=== PATIENT | female | born 1960 | race Caucasian/White ===

== ENCOUNTER → 2017-05-19 | Outpatient (CLI) | payer MEDICARE, MEDICAID ==
[~2017-05-19] MED LIST: ASPI1TAB PO; CALC600T60 PO; DRIS50002 PO; LORA10TA2 PO; MOME50SP; MULTCAP PO; NEXI40CA PO; OXYB10TA PO; PERC5TAB12 PO; TIMO5OPD OD; ZEST1TAB3 PO; [UNRECOGNIZED DRUG - OTHER] OU; astelin
[2017-05-19 09:25] LABS: ALBUMIN 3.4 GM/DL (3.2-5.2); ALBUMIN/GLOBULIN RATIO 0.97 (1.00-1.93); ALKALINE PHOSPHATASE 212 U/L (45-117); ALT/SGPT 50 U/L (12-78); ANION GAP 7 MEQ/L (8-16); AST/SGOT 22 U/L (15-37); BILIRUBIN,TOTAL 0.8 MG/DL (0.2-1.0); BLOOD UREA NITROGEN 17 MG/DL (7-18); CARBON DIOXIDE LEVEL 33 MEQ/L (21-32); CHLORIDE LEVEL 100 MEQ/L (98-107); CHOLESTEROL LEVEL 200 MG/DL (<200); CREATININE FOR GFR 0.67 MG/DL (0.55-1.02); GLOMERULAR FILTRATION RATE > 60.0 (>51); GLUCOSE, FASTING 127 MG/DL (70-105); POTASSIUM SERUM 4.3 MEQ/L (3.5-5.1); SODIUM LEVEL 140 MEQ/L (136-145); TOTAL PROTEIN 6.9 GM/DL (6.4-8.2); TRIGLYCERIDES LEVEL 220 MG/DL (<150)
== END ==
LOC: M LAB 08:00
PROVIDERS: ATTEND Family Medicine
DX: Z13.1 Encounter for screening for diabetes mellitus (principal); E78.00 Pure hypercholesterolemia, unspecified

== ENCOUNTER → 2017-06-18 | Outpatient (CLI) | payer MEDICARE ==
--- NOTE | 2017-06-18 10:08 | REP ---
Bilateral screening digital mammogram: There are no palpable abnormalities or other breast complaints. The patient states she had a clinical breast exam in May 2017. Comparison is 08/20/2010. Breast parenchyma is predominately adipose, with a few persisting fibroglandular elements, unchanged. There has been no interval development of masses, areas of structural distortion or clusters of microcalcifications typical of malignancy. Impression: There is no evidence of malignancy. BIRADS category 1 negative mammogram. The patient should have a repeat mammogram in 1 year. This mammogram was interpreted with the aid of an FDA-approved computer-aided detection system. A. Negative x-ray reports should not delay biopsy if a dominant or clinically suspicious mass is present. B. Not all breast cancers are identified by x-ray. C. Adenosis and dense breasts may obscure an underlying neoplasm. The patient letter being requested is M1.
== END ==
LOC: M WHC 08:09
PROVIDERS: ATTEND Family Medicine
DX: Z12.31 Encounter for screening mammogram for malignant neoplasm of breast (principal)

== ENCOUNTER → 2017-11-13 | Outpatient (REF) | payer MEDICARE, MEDICAID ==
[2017-11-13 16:43] LABS: ESTIMATED AVERAGE GLUCOSE 171 MG/DL (60-110); HEMOGLOBIN A1c 7.6 %
== END ==
LOC: M SFHCPLAZ 13:59
DX: R73.01 Impaired fasting glucose (principal)
CPT/HCPCS: 83036

== ENCOUNTER → 2018-01-12 | Outpatient (CLI) | payer MEDICARE, MEDICAID | LOC: M RAD 12:12 | DX: M85.08 Fibrous dysplasia (monostotic), other site (principal); M17.11 Unilateral primary osteoarthritis, right knee; M25.561 Pain in right knee; M25.461 Effusion, right knee ==

== ENCOUNTER → 2018-01-12 | Outpatient (REF) | payer MEDICARE, MEDICAID ==
[2018-01-12 13:37] LABS: TOTAL 25(OH) VITAMIN D 16.5 NG/ML (30.0-100.0)
[2018-01-12 13:45] LABS: ALBUMIN 3.4 GM/DL (3.2-5.2); ALBUMIN/GLOBULIN RATIO 1.03 (1.00-1.93); ALKALINE PHOSPHATASE 201 U/L (45-117); ALT/SGPT 41 U/L (12-78); ANION GAP 8 MEQ/L (8-16); AST/SGOT 26 U/L (7-37); BILIRUBIN,TOTAL 0.7 MG/DL (0.2-1.0); BLOOD UREA NITROGEN 10 MG/DL (7-18); CALCIUM LEVEL 8.6 MG/DL (8.8-10.2); CARBON DIOXIDE LEVEL 29 MEQ/L (21-32); CHLORIDE LEVEL 106 MEQ/L (98-107); GLOMERULAR FILTRATION RATE > 60.0 (>45); GLUCOSE, FASTING 94 MG/DL (70-100); SODIUM LEVEL 143 MEQ/L (136-145); TOTAL PROTEIN 6.7 GM/DL (6.4-8.2)
== END ==
LOC: M SFHCPLAZ 10:30
DX: M79.661 Pain in right lower leg (principal); I10 Essential (primary) hypertension (principal); E55.9 Vitamin D deficiency, unspecified; K76.0 Fatty (change of) liver, not elsewhere classified; E03.9 Hypothyroidism, unspecified; M85.08 Fibrous dysplasia (monostotic), other site; M17.11 Unilateral primary osteoarthritis, right knee; M25.461 Effusion, right knee; M25.861 Other specified joint disorders, right knee; Z79.899 Other long term (current) drug therapy
CPT/HCPCS: 73564

== ENCOUNTER → 2018-03-02 | Outpatient (REF) | payer MEDICARE, MEDICAID ==
[2018-03-02 11:57] LABS: HEMATOCRIT 46.2 % (36.0-47.0); MEAN CORPUSCULAR HEMOGLOBIN 29.6 pg (27.0-33.0); MEAN CORPUSCULAR HGB CONC 32.5 g/dl (32.0-36.5); MEAN CORPUSCULAR VOLUME 91.1 fl (80.0-96.0); PLATELET COUNT, AUTOMATED 300 10^3/uL (150-450); RED BLOOD COUNT 5.07 10^6/uL (4.00-5.40); RED CELL DISTRIBUTION WIDTH 13.1 % (11.5-14.5); WHITE BLOOD COUNT 12.8 10^3/uL (4.0-10.0)
[2018-03-02 12:26] LABS: ANION GAP 7 MEQ/L (8-16); BLOOD UREA NITROGEN 23 MG/DL (7-18); CALCIUM LEVEL 8.4 MG/DL (8.8-10.2); CARBON DIOXIDE LEVEL 34 MEQ/L (21-32); CHLORIDE LEVEL 102 MEQ/L (98-107); CREATININE FOR GFR 0.73 MG/DL (0.55-1.30); GLOMERULAR FILTRATION RATE > 60.0 (>45); GLUCOSE, FASTING 121 MG/DL (70-100); POTASSIUM SERUM 4.6 MEQ/L (3.5-5.1); SODIUM LEVEL 143 MEQ/L (136-145)
[2018-03-02 14:32] LABS: ESTIMATED AVERAGE GLUCOSE 166 MG/DL (60-110); HEMOGLOBIN A1c 7.4 %
== END ==
LOC: M SFHCPLAZ 08:38
DX: R73.01 Impaired fasting glucose (principal)
CPT/HCPCS: 83036

== ENCOUNTER → 2018-03-05 | Outpatient (REF) | payer MEDICARE, MEDICAID ==
[2018-03-05 14:24] LABS: CREATININE, URINE 72.5 MG/DL; MALB URINE SIEMENS < 5.0 MG/L; MAU/CREAT RATIO 6.8 MCG/MG (0.0-30.0)
== END ==
LOC: M SFHCPLAZ 12:54
DX: E11.9 Type 2 diabetes mellitus without complications (principal)
CPT/HCPCS: 82043

== ENCOUNTER → 2018-04-05 | Outpatient (REF) | payer MEDICARE, MEDICAID | LOC: M SFHCPLAZ 11:27 | DX: I10 Essential (primary) hypertension (principal); Z53.8 Procedure and treatment not carried out for other reasons ==

== ENCOUNTER → 2018-12-06 | Outpatient (CLI) | payer MEDICARE, MEDICAID ==
[~2018-12-06] MED LIST changes: -ASPI1TAB PO; +ASPI81TA26 PO; -DRIS50002 PO; +DRIS50003 PO; +LORA-243 PO; -LORA10TA2 PO
[2018-12-06 14:49] LABS: MONO SCRN NEGATIVE (NEGATIVE)
== END ==
LOC: M LAB 13:09
PROVIDERS: ATTEND Physician Assistant Medical
DX: R53.83 Other fatigue (principal)

== ENCOUNTER → 2018-12-28 | Outpatient (CLI) | payer MEDICARE, MEDICAID ==
[2018-12-28 13:23] LABS: HEMATOCRIT 41.8 % (36.0-47.0); HEMOGLOBIN 13.4 g/dl (12.0-15.5); MEAN CORPUSCULAR HGB CONC 32.1 g/dl (32.0-36.5); MEAN CORPUSCULAR VOLUME 93.5 fl (80.0-96.0); PLATELET COUNT, AUTOMATED 326 10^3/uL (150-450); RED BLOOD COUNT 4.47 10^6/uL (4.00-5.40); WHITE BLOOD COUNT 9.7 10^3/uL (4.0-10.0)
[2018-12-28 13:59] LABS: ALBUMIN 3.3 GM/DL (3.2-5.2); ALT/SGPT 35 U/L (12-78); BILIRUBIN,TOTAL 0.4 MG/DL (0.2-1.0); BLOOD UREA NITROGEN 15 MG/DL (7-18); CARBON DIOXIDE LEVEL 32 MEQ/L (21-32); CHLORIDE LEVEL 101 MEQ/L (98-107); CHOLESTEROL LEVEL 171 MG/DL (<200); CHOLESTEROL RISK RATIO 4.275 (<5); CREATININE FOR GFR 0.67 MG/DL (0.55-1.30); GLOMERULAR FILTRATION RATE > 60.0 (>45); GLUCOSE, FASTING 114 MG/DL (70-100); HDL CHOLESTEROL 40 MG/DL (>40); LDL CHOLESTEROL 94 MG/DL (<100); NON-HDL-C 131 MG/DL; SODIUM LEVEL 140 MEQ/L (136-145); TOTAL PROTEIN 6.2 GM/DL (6.4-8.2); TRIGLYCERIDES LEVEL 183 MG/DL (<150)
[2018-12-28 14:13] LABS: MALB URINE SIEMENS 10.7 MG/L; MAU/CREAT RATIO 8.2 MCG/MG (0.0-30.0)
[2018-12-28 19:10] LABS: HEMOGLOBIN A1c 6.6 %
== END ==
LOC: M WUC 09:24
PROVIDERS: ATTEND Family Medicine
DX: E03.9 Hypothyroidism, unspecified (principal); E11.9 Type 2 diabetes mellitus without complications; I10 Essential (primary) hypertension

== ENCOUNTER 2019-03-05 21:46 | Emergency (ER) | payer MEDICARE, MEDICAID ==
[~2019-03-05] VITALS: Ht 149.9 cm; Wt 77.2 kg
[~2019-03-05 21:46] MED LIST changes: -OXYB10TA PO; +OXYB10TA2 PO
[2019-03-05] MEDS ORDERED: KETOROLAC 30 MG/ML VIAL (J1885) IV ONE (22:30)
[2019-03-05] MEDS ORDERED: NS 1,000 ML IV ONE (22:30)
[2019-03-05 22:48] LABS: BASO % 0.1 % (0.0-1.0); EOS # 0.1 10^3/uL (0.0-0.50); EOS % 0.5 % (0.0-3.0); HEMATOCRIT 40.8 % (36.0-47.0); HEMOGLOBIN 13.4 g/dl (12.0-15.5); LYMPH # 1.9 10^3/uL (1.5-4.5); LYMPH % 18.1 % (24.0-44.0); MEAN CORPUSCULAR HEMOGLOBIN 29.7 pg (27.0-33.0); MEAN CORPUSCULAR HGB CONC 32.8 g/dl (32.0-36.5); MEAN CORPUSCULAR VOLUME 90.5 fl (80.0-96.0); MONO # 1.1 10^3/uL (0.0-0.8); MONO % 10.5 % (0.0-5.0); NEUTROPHILS # 7.3 10^3/uL (1.8-7.7); NEUTROPHILS % 70.4 % (36.0-66.0); PLATELET COUNT, AUTOMATED 304 10^3/uL (150-450); RED BLOOD COUNT 4.51 10^6/uL (4.00-5.40); WHITE BLOOD COUNT 10.3 10^3/uL (4.0-10.0)
[2019-03-05 23:02] LABS: ALBUMIN 3.1 GM/DL (3.2-5.2); BILIRUBIN,DIRECT 0.2 MG/DL (0.0-0.2); BILIRUBIN,TOTAL 0.6 MG/DL (0.2-1.0); TOTAL PROTEIN 7.1 GM/DL (6.4-8.2)
[2019-03-06 04:00] VITALS: BP 108/57
[2019-03-06] MEDS ORDERED: MACR100C43 PO (04:13)
[2019-03-06] MEDS ORDERED: PYRI1TAB5 PO (04:13)
[2019-03-06] MEDS ORDERED: NITROFURANTOIN (MACROBID) 100 MG CAP PO ONE (04:15)
[2019-03-06] MEDS ORDERED: PHENAZOPYRIDINE 100 MG TAB PO ONE (04:15)
== END 2019-03-06 04:41 | disposition home or self-care (01) ==
LOC: M ED 21:46
DX: R10.30 Lower abdominal pain, unspecified (principal); I10 Essential (primary) hypertension; F79 Unspecified intellectual disabilities; Z79.899 Other long term (current) drug therapy; Z79.82 Long term (current) use of aspirin
CPT/HCPCS: 80047; 80076; 81001; 83690; 85025; 87086; 93041; 96361; 96374; 99285; J1885

== ENCOUNTER 2019-07-24 22:14 | Inpatient (IN) | payer MEDICARE, MEDICAID ==
[~2019-07-24] VITALS: Ht 149.9 cm; Wt 69.9 kg
[2019-07-24] MEDS: HumaLOG INSULIN (NovoLOG) PER UNIT SC SCH (21:00)
[~2019-07-24 22:14] MED LIST changes: +MACR100C43 PO; +PYRI1TAB5 PO
[2019-07-24] MEDS ORDERED: BACT800T5 PO (22:21)
[2019-07-24] MEDS ORDERED: ONDANSETRON 4MG/2ML VIAL (J2405) IV ONE (23:30)
[2019-07-24] MEDS ORDERED: MORPHINE 2 MG/ML 1ML VIAL (J2270) IV PRN (23:30)
[2019-07-25] MEDS ORDERED: ONDANSETRON 4MG/2ML VIAL (J2405) IV ONE
[2019-07-25] MEDS ORDERED: MORPHINE 2 MG/ML 1ML VIAL (J2270) IV ONE
[2019-07-25 00:19] LABS: BASO % 0.2 % (0.0-1.0); EOS # 0.1 10^3/uL (0.0-0.5); EOS % 0.8 % (0.0-3.0); HEMATOCRIT 40.4 % (36.0-47.0); HEMOGLOBIN 13.1 g/dl (12.0-15.5); LYMPH # 2.1 10^3/uL (1.5-5.0); LYMPH % 14.6 % (24.0-44.0); MEAN CORPUSCULAR HGB CONC 32.4 g/dl (32.0-36.5); MEAN CORPUSCULAR VOLUME 92.4 fl (80.0-96.0); MONO # 1.2 10^3/uL (0.0-0.8); MONO % 8.5 % (0.0-5.0); NEUTROPHILS % 74.8 % (36.0-66.0); PLATELET COUNT, AUTOMATED 371 10^3/uL (150-450); RED BLOOD COUNT 4.37 10^6/uL (4.00-5.40); WHITE BLOOD COUNT 14.6 10^3/uL (4.0-10.0)
[2019-07-25 00:41] LABS: ALBUMIN 3.1 GM/DL (3.2-5.2); ALT/SGPT 44 U/L (12-78); BILIRUBIN,DIRECT < 0.1 MG/DL (0.0-0.2); BILIRUBIN,TOTAL 0.3 MG/DL (0.2-1.0); BLOOD UREA NITROGEN 18 MG/DL (7-18); CALCIUM LEVEL 8.9 MG/DL (8.8-10.2); CARBON DIOXIDE LEVEL 29 MEQ/L (21-32); CHLORIDE LEVEL 100 MEQ/L (98-107); CREATININE FOR GFR 1.17 MG/DL (0.55-1.30); GLOMERULAR FILTRATION RATE 50.1 (>45); GLUCOSE, FASTING 135 MG/DL (70-100); POTASSIUM SERUM 4.2 MEQ/L (3.5-5.1); SODIUM LEVEL 139 MEQ/L (136-145); TOTAL PROTEIN 6.9 GM/DL (6.4-8.2)
[2019-07-25] MEDS ORDERED: SODIUM CHLORIDE 0.9% 1000ML IV STA (00:43)
--- NOTE | 2019-07-25 00:43 | HPEPDOC ---
[facility] Medical History & Physical Date of Admission Jul 25, 2019 Date of Service: Jul 25, 2019 Primary Care Physician: Kolby Lane MD Attending Physician: Michael Will MD History and Physical TIME OF SERVICE: 1:05 AM CHIEF COMPLAINT: "Sore" breast HISTORY OF PRESENT ILLNESS: This is a 59-year-old female who presents with complaints of having a "sore" right breast since Thursday. Initially she had a small pimple that eventually grew to cover the whole breast. At its worst the pain was 10/10. It improved to 3 out of 10 after receiving morphine. She's never had this kind of discomfort before. Associated symptoms include redness of the skin and discharge. She tiffanie es having fevers, chills, nausea, vomiting. Per discussion with Dr. Shay, she was taking Bactrim on an outpatient basis and was given Rocephin in the ER; wound cultures have been sent. REVIEW OF SYSTEMS: 12 point review of systems negative except as listed in HPI PAST MEDICAL/ SURGICAL HISTORY: Developmental disability. Type 2 diabetes Chronic Hypertension Anxiety GERD Diverticulosis. OA Allergic rhinitis. BRICE Urge incontinence. History of upper GI bleed. History of vitamin D deficiency. Status post tonsillectomy. Status post ligation. Cholelithiasis / Status post cholecystectomy History of uterine fibroids & postmenopausal bleeding / Status post lap hysterectomy with bilateral salpingo-oophorectomy. Status post left tympanoplasty and mastoidectomy resection of left cholecystectomy, SOCIAL HISTORY: She does not smoke FAMILY HISTORY: Diabetes Coronary artery disease. Kidney disease. COPD Seizure disorder Breast cancer ALLERGIES: Please see below. HOME MEDICATIONS: Please see below. PHYSICAL EXAMINATION: VITAL SIGNS: Please see below. GEN: obese/ well developed/ NAD INTEGUMENT: The skin covering most of the right breast is red, at the 4 o'clock position. There is clean, dry dressing covering region that is draining. HEENT: atraumatic / ucus membranes moist and pink / sclera anicteric CVS: RRR/NMRG/ LUNGS: lungs are clear to auscultation bilaterally on room air ABDOMEN:obese/ soft & not tender with palpation MSK/EXTREMITIES: range of motion intact in all 4 extremities NEURO: CN 2-12 are grossly intact /herbal response is slightly delayed but speech is not dysarthric PSYCH: alert and oriented to person place and time/ able to understand and follow all commands LABORATORY DATA: See below. IMAGING: Chest x-ray is unremarkable MICROBIOLOGY: Please see below. ASSESSMENT: Ms. Laguna is a 59-year-old with a past medical history of developmental disability, type 2 diabetes, chronic hypertension, anxiety, BRICE, and OA who will be admitted for management of right breast abscess. PLAN: 1. Right breast abscess. Unlikely inflammatory cancer Plan: Admit to medical floor/follow-up pancultures /IV vancomycin / follow-up with General Surgeon to decide if she needs I&D / percocet for pain PRN 2. SIRS Likely reactive due to abscess. Unlikely truly sepsis because she does not appear septic or toxic SIRS criteria include HR >90 /WBC >12 QSOFA score =0 = not high risk She received Rocephin & IV fluids in the ER Plan: admit to MedSurg / telemetry / Sepsis protocol with lactic acid /switched to vancomycin / /f/u blood cx, and wound cultures/ Acetaminophen PRN for fever 3. Type 2 diabetes Her last A1c was 6.6 in December Plan: diabetic diet / f/u accuchecks & A1C / hypoglycemia protocol / sliding scale insulin / hold oral anti-glycemics 4. Chronic hypertension. Plan: Continue lisinopril and hydrochlorothiazide 5. GERD. Plan: Continue esmeprazole 6. Urge incontinence. Plan: Continue oxybutynin 7. Obesity BMI is 35.2. This complicates care Since her BMI is greater than 35 and she has diabetes. She is a candidate for back surgery, but because of her developmental disability she may not be a good candidate for the procedure Plan: can f/u w PCP for STOP BANG questionnaire & turbo operator consult / recommend cardiovascular exercise for 40 min 4-5 days a week DVT PROPHYLAXIS: SCDs pending surgery eval DISPOSITION: home after more than 2 midnight's stay Vital Signs Vital Signs Date Time Temp Pulse Resp B/P (MAP) Pulse Ox O2 Delivery O2 Flow Rate FiO2 07/25/19 00:19 97.6 116 18 138/68 98 Room Air Laboratory Data Labs 24H Laboratory Tests 2 07/24/19 23:33: Bedside Glucose (Misc Panel) 127H 07/24/19 23:49: Immature Granulocyte % (Auto) 1.1, Neutrophils (%) (Auto) 74.8H, Lymphocytes (%) (Auto) 14.6L, Monocytes (%) (Auto) 8.5H, Eosinophils (%) (Auto) 0.8, Basophils (%) (Auto) 0.2, Neutrophils # (Auto) 11.0H, Lymphocytes # (Auto) 2.1, Monocytes # (Auto) 1.2H, Eosinophils # (Auto) 0.1, Basophils # (Auto) 0.0, Nucleated Red Blood Cells % (auto) 0.0 07/25/19 00:08: Anion Gap 10, Glomerular Filtration Rate 50.1, Calcium Level 8.9, Total Bilirubin 0.3, Direct Bilirubin < 0.1, Aspartate Amino Transf (AST/SGOT) 17, Alanine Aminotransferase (ALT/SGPT) 44, Alkaline Phosphatase 258H, Total Protein 6.9, Albumin 3.1L, Albumin/Globulin Ratio 0.82L CBC/BMP Laboratory Tests 07/24/19 23:49 07/25/19 00:08 Microbiology Microbiology 07/24/19 Blood Culture, Received Pending 07/24/19 Blood Culture, Received Pending Home Medications Scheduled Aspirin (Aspirin EC) 81 Mg Tab, 81 MG PO DAILY Atorvastatin Calcium (Atorvastatin Calcium) 10 Mg Tablet, 10 MG PO QHS Betaxolol Hcl (Betaxolol HCl) 0.5% 5ML Drops, 2 DROP OD BID Brimonidine Tartrate (Brimonidine Tartrate) 0.2% 5ML Drops, 2 DROP OD BID Calcium Carbonate (Calcium) 600 Mg Tab, 600 MG PO DAILY Ergocalciferol (Vitamin D2) (Vitamin D2) 50,000 Units Cap, 50,000 UNITS PO Q2WK Esomeprazole Magnesium (Nexium) 40 Mg Cap, 40 MG PO DAILY Lisinopril/Hydrochlorothiazide (Lisinopril-Hctz 20-25 mg Tab) 1 Each Tablet, 1 TAB PO DAILY Loratadine (Loratadine) 10 Mg Tab, 10 MG PO DAILY Metformin HCl (Metformin HCl) 1,000 Mg Tablet, 1,000 MG PO DAILY Multivitamin (Multivitamins) 1 Cap Cap, 1 CAP PO DAILY Oxybutynin Chloride (Oxybutynin Chloride ER) 10 Mg Tab, 10 MG PO DAILY Sulfamethoxazole/Trimethoprim (Bactrim Ds Tablet) 1 Each Tablet, 1 TAB PO BID STARTED ON 07/22 Scheduled PRN Azelastine HCl (Azelastine HCl) 0.1% [place].pump, 2 SPRAY NARES BID PRN for ALLERGIES Allergies Coded Allergies: No Known Drug Allergies (Verified Allergy, Unknown, 03/05/19) A-FIB/CHADSVASC A-FIB History Current/History of A-Fib/PAF?: No Current PO Anticoag Therapy: No SAMINA ROSA MD Jul 25, 2019 00:43
[2019-07-25] MEDS ORDERED: GLUCAGON FOR INJ 1 MG VIAL (J1610) SC PRN (00:45)
[2019-07-25] MEDS ORDERED: cefTRIAXone SOD 1 GM in D5W MINI-BAG PLUS 50 ML IV ONE (00:45)
[2019-07-25] MEDS ORDERED: MOM 30ML SUSPENSION UDC PO PRN (00:45)
[2019-07-25] MEDS ORDERED: MAALOX 30 ML SUSP *UDC PO PRN (00:45)
[2019-07-25] MEDS ORDERED: DEXTROSE 50% 50 ML SYRINGE IV PRN (00:45)
[2019-07-25] MEDS ORDERED: GLUCOSE 4 GM CHEW TABLET PO PRN (00:45)
[2019-07-25] MEDS ORDERED: VANCOMYCIN HCL 1,000 MG, VIAL MATE ADAPTER 1 EACH in D5W 250 ML IV ONE (01:00)
[2019-07-25] MEDS ORDERED: BETA0.5S9 OD (01:11)
[2019-07-25] MEDS ORDERED: BRIM0.2S13 OD (01:11)
[2019-07-25] MEDS ORDERED: ATOR1TAB19 PO (01:11)
[2019-07-25] MEDS ORDERED: VITA50005 PO (01:11)
[2019-07-25] MEDS ORDERED: AZEL0.1S NARES (01:11)
[2019-07-25] MEDS ORDERED: LISI20TA20 PO (01:11)
[2019-07-25] MEDS ORDERED: METF10004 PO (01:11)
[2019-07-25] MEDS ORDERED: lisinopriL 20 MG TAB PO ONE (02:00)
[2019-07-25 05:05] LABS: HEMOGLOBIN A1c 7.1 %
[2019-07-25] MEDS ORDERED: PERCOCET 5MG/325MG TAB PO PRN (05:15)
--- NOTE | 2019-07-25 05:24 | PHACANCOPD ---
PHARMACY VANCOMYCIN DOSING Pt Demographics Demographics Patient Age:59 , Weight:79.090 , Gender: female Adjusted Body Weight Date: 07/25/19, Adjusted Body Weight: [65] Kg Vancomycin Vancomycin indication: RT BREAST ABCESS Vancomycin Target Ranges: 15-20 mcg/ml Vancomycin Load Y/N: No Load Dose Date Time Vancomycin Load Dose: Date: Time: Vancomycin Dose Date: 07/25/19. Current Vancomycin Dose: [1GM Q18H] Intermittent Dosing?: No Labs Micro Microbiology 07/24/19 Blood Culture, Received Pending 07/24/19 Blood Culture, Received Pending Creatinine Clearance Date:07/25/19. Creatinine Clearance: . Assessment and Plan Maintaining Current Dose?: Yes Reason for dose change: No Dose Change Pharmacist Note Pharmacist Note Date: 07/25/19. Pharmacist note:59 YOF ADMITTED WITH WORSENING SX OF RT. BREAST ABCESS AFTER FAILING OUTPATIENT TREATMENT WITH SMX/TMP. SCR=1.17,CRCL=51.8- CALCULATED.NKDA.patient received 1 gm Vancomycin in ED today@0200. Will continue w/1 gm IV [id number] to begin today@1400.First trough is scheduled 07/27@0100(prior to the 4th dose)Will continue to monitor and make dose adjustments as needed. LILLI MIGUEL PHARMACY Jul 25, 2019 05:24
[2019-07-25] MEDS: HumaLOG INSULIN (NovoLOG) PER UNIT SC SCH ×4 (07:30→20:44)
--- NOTE | 2019-07-25 08:18 | REP ---
Portable chest x-ray: Single view. History: Shortness of breath. Comparison study October 09, 2015. Findings: EKG monitoring electrodes are seen. The lungs are well inflated and clear. Heart is not enlarged. Pulmonary vasculature is not increased. No significant bony abnormality is seen. Impression: No acute disease. Electronically Signed by Angel Smith MD 07/25/2019 08:09 A
[2019-07-25] MEDS ORDERED: ENOXAPARIN 40 MG/0.4 ML SYRINGE (J1650) SC SCH (09:00)
[2019-07-25] MEDS: ERYTHROMYCIN OPHTH OINT OD SCH ×3 (09:00→20:49)
[2019-07-25] MEDS: PANTOPRAZOLE 40MG TAB (PROTONIX) PO SCH (09:54)
[2019-07-25] MEDS: ASPIRIN 81 MG ENTERIC TAB PO SCH (09:54)
[2019-07-25] MEDS: CALCIUM/VITAMIN D 500 MG TAB PO SCH (09:54)
[2019-07-25] MEDS: DOCUSATE SODIUM 100 MG CAP PO SCH ×2 (09:55→20:50)
[2019-07-25] MEDS: oxyBUTYnin *DITROPAN XL* 5 MG TABCR PO SCH (09:55)
[2019-07-25] MEDS: hydroCHLOROthiazide 25 MG TAB PO SCH (10:00)
[2019-07-25] MEDS: lisinopriL 20 MG TAB PO SCH (10:00)
[2019-07-25 10:37] VITALS: BP 100/58
[2019-07-25] MEDS ORDERED: AZELASTINE 137MCG NASAL SPY 30 ML (ASTELIN) PRN (11:45)
--- NOTE | 2019-07-25 11:46 | IPNPDOC ---
Subjective Date Seen The patient was seen on 07/25/19. Subjective Chief Complaint/HPI right breast abscess Events since last encounter Admitted after failing outpatient treatment for breast abscess. Placed on Va ncomycin overnight. + MRSA from cx completed 07/22/2019. Wound is actively draining. also noting lump and irritation to right lower eyelid. Constitutional: Denies: Chills, Fever, Night Sweats Skin: Reports: Other (abscess right breast) Cardiovascular: Denies: Chest Pain, Palpitations, Orthopnea, Paroxysmal Noc. Dyspnea, Lt Headedness Gastrointestinal: Denies: Nausea, Vomiting, Abdominal Pain, Diarrhea, Const ipation Psych: Reports: Mood Normal; Denies: Depression, Memory Issues Objective Physical Examination General Exam: Positive: Alert, No Acute Distress Neck Exam: Positive: Supple; Negative: JVD, thyromegaly Chest Exam: Positive: Clear to auscultation, Normal air movement Heart Exam: Positive: Rate Normal, Regular Rhythm, Normal S1, Normal S2; Negative: Murmurs, Rubs Abdomen Exam: Positive: Normal bowel sounds, Soft; Negative: Tenderness, Hepatospenomegaly Extremity Exam: Positive: Normal pulses; Negative: Clubbing, Cyanosis, Edema Skin Exam: Positive: Other skin issue (abscess right breast, surrounding erythema, drianing thick purulent drainage) Psych Exam: Positive: Mental status NL Assessment /Plan Problems (1) Abscess of right breast unrelated to or Status: Acute Problem Text: D1 vanco 07/25 plan ID if collection does not drain spontaneously 07/25 breast US: . 3 o'clock day o'clock. There is apparently a draining open wound at 5 o'clock. At 5 o'clock in the area of the open wound there is a superficial subcutaneous collection seen measuring 3.0 by 0.4 by 1.8 cm. This is directly under the wound. No other abnormal collection is seen. No mass lesion is seen. 07/22 breast WCX: MRSA (2) Type 2 diabetes mellitus Status: Acute Problem Text: insulin per sliding scale. (3) HTN (hypertension) Status: Chronic Response to Treatment: Stable Problem Text: Continue at home medications (4) ARLYN (generalized anxiety disorder) Status: Chronic Response to Treatment: Stable (5) GERD (gastroesophageal reflux disease) Status: Chronic Response to Treatment: Stable (6) Development delay Status: Chronic Response to Treatment: Stable Plan/VTE VTE Prophylaxis Ordered?: Yes VS, I&O, 24H, Fishbone Vital Signs/I&O Vital Signs Date Time Temp Pulse Resp B/P (MAP) Pulse Ox O2 Delivery O2 Flow Rate FiO2 07/25/19 10:37 97.6 92 20 100/58 (72) 98 Room Air Laboratory Data 24H LABS Laboratory Tests 2 07/24/19 23:33: Bedside Glucose (Misc Panel) 127H 07/24/19 23:49: Immature Granulocyte % (Auto) 1.1, Neutrophils (%) (Auto) 74.8H, Lymphocytes (%) (Auto) 14.6L, Monocytes (%) (Auto) 8.5H, Eosinophils (%) (Auto) 0.8, Basophils (%) (Auto) 0.2, Neutrophils # (Auto) 11.0H, Lymphocytes # (Auto) 2.1, Monocytes # (Auto) 1.2H, Eosinophils # (Auto) 0.1, Basophils # (Auto) 0.0, Nucleated Red Blood Cells % (auto) 0.0, Estimated Mean Plasma Glucose 157H, Hemoglobin A1c 7.1 07/25/19 00:08: Anion Gap 10, Glomerular Filtration Rate 50.1, Calcium Level 8.9, Total Bilirubin 0.3, Direct Bilirubin < 0.1, Aspartate Amino Transf (AST/SGOT) 17, Alanine Aminotransferase (ALT/SGPT) 44, Alkaline Phosphatase 258H, Total Protein 6.9, Albumin 3.1L, Albumin/Globulin Ratio 0.82L 07/25/19 05:53: Bedside Glucose (Misc Panel) 110 07/25/19 08:12: Bedside Glucose (Misc Panel) 82 07/25/19 08:59: Lactic Acid Level 1.9 07/25/19 11:19: Bedside Glucose (Misc Panel) 128H CBC/BMP Laboratory Tests 07/24/19 23:49 07/25/19 00:08 Microbiology Microbiology 07/25/19 Blood Culture, Received Pending 07/25/19 Blood Culture, Received Pending 07/24/19 Blood Culture, Received Pending 07/24/19 Blood Culture, Received Pending Manju Martinez Jul 25, 2019 11:46 Collin Valenzuela M.D. Jul 25, 2019 16:08
[2019-07-25 12:00] LABS: BASO % 0.2 % (0.0-1.0); EOS # 0.1 10^3/uL (0.0-0.5); EOS % 1.5 % (0.0-3.0); HEMATOCRIT 37.8 % (36.0-47.0); HEMOGLOBIN 11.9 g/dl (12.0-15.5); LYMPH # 1.4 10^3/uL (1.5-5.0); MEAN CORPUSCULAR HEMOGLOBIN 29.4 pg (27.0-33.0); MEAN CORPUSCULAR HGB CONC 31.5 g/dl (32.0-36.5); MEAN CORPUSCULAR VOLUME 93.3 fl (80.0-96.0); MONO % 11.1 % (0.0-5.0); NEUTROPHILS # 6.3 10^3/uL (1.5-8.5); NEUTROPHILS % 70.8 % (36.0-66.0); PLATELET COUNT, AUTOMATED 329 10^3/uL (150-450); RED BLOOD COUNT 4.05 10^6/uL (4.00-5.40); WHITE BLOOD COUNT 8.9 10^3/uL (4.0-10.0)
[2019-07-25 12:25] VITALS: BP 118/70
[2019-07-25] MEDS: LORATADINE 10 MG TAB PO SCH (13:27)
[2019-07-25 14:30] VITALS: BP 103/58
[2019-07-25] MEDS: VANCOMYCIN HCL 1,000 MG, VIAL MATE ADAPTER 1 EACH in D5W 250 ML IV SCH (14:57)
--- NOTE | 2019-07-25 15:17 | REP ---
Focused right breast sonography: History: Right breast ultrasound for right breast abscess. Findings: The aspect of the right breast is scanned through the area of redness and erythema. 3 o'clock day o'clock. There is apparently a draining open wound at 5 o'clock. At 5 o'clock in the area of the open wound there is a superficial subcutaneous collection seen measuring 3.0 by 0.4 by 1.8 cm. This is directly under the wound. No other abnormal collection is seen. No mass lesion is observed. Electronically Signed by Angel Smith MD 07/25/2019 03:08 P
[2019-07-25 20:30] VITALS: BP 119/69
[2019-07-25] MEDS: ATORVASTATIN 10 MG TAB PO SCH (20:49)
[2019-07-25] MEDS: ACETAMINOPHEN TAB 650MG DOSE (2X325MG) PO PRN (20:49)
[2019-07-25] MEDS: HEPARIN SOD (PORCINE) 5000 UNITS/ML VIAL SQ SCH (20:50)
[2019-07-26 06:00] VITALS: BP 124/53
[2019-07-26 07:58] LABS: HEMATOCRIT 38.5 % (36.0-47.0); HEMOGLOBIN 12.5 g/dl (12.0-15.5); MEAN CORPUSCULAR HEMOGLOBIN 29.9 pg (27.0-33.0); MEAN CORPUSCULAR HGB CONC 32.5 g/dl (32.0-36.5); MEAN CORPUSCULAR VOLUME 92.1 fl (80.0-96.0); PLATELET COUNT, AUTOMATED 345 10^3/uL (150-450); RED BLOOD COUNT 4.18 10^6/uL (4.00-5.40); WHITE BLOOD COUNT 6.9 10^3/uL (4.0-10.0)
[2019-07-26 08:13] LABS: BLOOD UREA NITROGEN 18 MG/DL (7-18); CALCIUM LEVEL 9.3 MG/DL (8.8-10.2); CARBON DIOXIDE LEVEL 31 MEQ/L (21-32); CHLORIDE LEVEL 103 MEQ/L (98-107); GLOMERULAR FILTRATION RATE > 60.0 (>45); GLUCOSE, FASTING 126 MG/DL (70-100); POTASSIUM SERUM 4.1 MEQ/L (3.5-5.1); SODIUM LEVEL 138 MEQ/L (136-145)
[2019-07-26] MEDS: VANCOMYCIN HCL 1,000 MG, VIAL MATE ADAPTER 1 EACH in D5W 250 ML IV SCH (08:55)
[2019-07-26] MEDS: HEPARIN SOD (PORCINE) 5000 UNITS/ML VIAL SQ SCH ×2 (08:55→20:31)
[2019-07-26] MEDS: lisinopriL 20 MG TAB PO SCH (08:56)
[2019-07-26] MEDS: HumaLOG INSULIN (NovoLOG) PER UNIT SC SCH ×4 (08:56→20:31)
[2019-07-26] MEDS: PANTOPRAZOLE 40MG TAB (PROTONIX) PO SCH (08:56)
[2019-07-26] MEDS: DOCUSATE SODIUM 100 MG CAP PO SCH ×2 (08:56→20:30)
[2019-07-26] MEDS: ASPIRIN 81 MG ENTERIC TAB PO SCH (08:56)
[2019-07-26] MEDS: CALCIUM/VITAMIN D 500 MG TAB PO SCH (08:56)
[2019-07-26] MEDS: LORATADINE 10 MG TAB PO SCH (08:57)
[2019-07-26] MEDS: hydroCHLOROthiazide 25 MG TAB PO SCH (08:57)
[2019-07-26] MEDS: ERYTHROMYCIN OPHTH OINT OD SCH ×3 (08:57→20:30)
[2019-07-26] MEDS: oxyBUTYnin *DITROPAN XL* 5 MG TABCR PO SCH (13:01)
[2019-07-26 14:00] VITALS: BP 96/53
--- NOTE | 2019-07-26 14:04 | IPNPDOC ---
Subjective Date Seen The patient was seen on 07/26/19. Subjective Chief Complaint/HPI Ms. Laguna is a 59 year old female admitted with a diagnosis of abscess of the R breast. Pt reported presented to the ED after she noted that a small spot and soreness over the right breast had worsened abruptly. She was advised by her PCP to go to the ER as she had failed outpatient Bactrim for the breast abscess. Patient was further given Rocephin IM in the ER. Would cultures were obtained. Patient noted she has pain and redness over the area. Her sisters who were present during the exam, stated the redness and swelling has improved since she has been in hospital. Patient denied any fever, chills, night sweats, CP, palpitations, dyspnea, cough, vomiting, nausea, abdominal pain, diarrhea and constipation, dizziness on standing. She reported she feels better today than she did on ED arrival. She feels strong enough to take a shower with minimal assistance or a shower chair if possible. Other systems see HPI Objective Physical Examination General Exam: Positive: Alert, Cooperative, No Acute Distress Eye Exam: Positive: Conjunctiva & lids normal (erythematous R lower lid) Neck Exam: Positive: Supple; Negative: JVD, thyromegaly Chest Exam: Positive: Clear to auscultation, Normal air movement Heart Exam: Positive: Rate Normal, Regular Rhythm, Normal S1, Normal S2; Negative: Murmurs, Rubs Abdomen Exam: Positive: Normal bowel sounds, Soft; Negative: Tenderness, Hepatospenomegaly Extremity Exam: Positive: Normal pulses; Negative: Clubbing, Cyanosis, Edema Skin Exam: Positive: Other skin issue (abscess over right breast; reportedly improved per family and nursing. some TTP over area of induration. Purulent drainage, no odor from wound. ) Psych Exam: Positive: Mental status NL Assessment /Plan Assessment Ms. Laguna is a 59 year old female admitted with a diagnosis of abscess of the R breast. she has a PMHx which includes T2DM, HTN, GERD, Urge incontinence, Obesity. Sheis currently being treated for her breast abscess with IV vanc. Labs reviewed. Leukocytosis resolved. Patient anxious to take care of her ADLs: daily showers with assistance device and assistance/observation of nursing. Problems (1) Abscess of right breast unrelated to or Status: Acute Problem Text: 07/26/19: Patient provided informed consent for bandage change. Assisted by nursing. Removed dressing. Wound cleaned with Povidone Iodine. Areas of induration and erythema marked with permanent marker so resolution may be monitored objectively. New bandage applied. Patient tolerated with brief periods of pain. dressing changes daily. - repeat USG of the R breast 07/27/19 IV Vancomycin started 07/25/1907/25 plan ID if collection does not drain spontaneously 07/25 breast US: . 3 o'clock day o'clock. There is apparently a draining open wound at 5 o'clock. At 5 o'clock in the area of the open wound there is a superficial subcutaneous collection seen measuring 3.0 by 0.4 by 1.8 cm. This is directly under the wound. No other abnormal collection is seen. No mass lesion is seen. 07/22 breast WCX: MRSA susceptible to Vancomycin. (2) Type 2 diabetes mellitus Status: Acute Problem Text: insulin per sliding scale diabetic diet check FBS BID (3) HTN (hypertension) Status: Chronic Response to Treatment: Stable Problem Text: Continue Lisinopril and HCTZ (4) GERD (gastroesophageal reflux disease) Status: Chronic Response to Treatment: Stable Problem Text: - continue Protonix 40mg (5) Obesity Status: Chronic Problem Text: Complicating care (6) Urge incontinence Status: Chronic Response to Treatment: Stable Problem Text: Contiue Oxybutynin Plan/VTE VTE Prophylaxis Ordered?: Yes Disposition d/c possible 07/29/19 with PO Clindamycin or Bactrim. VS, I&O, 24H, Fishbone Vital Signs/I&O Vital Signs Date Time Temp Pulse Resp B/P (MAP) Pulse Ox O2 Delivery O2 Flow Rate FiO2 07/26/19 08:56 124/53 07/26/19 06:00 96.4 84 16 94 Room Air I&O- Last 24 Hours up to 6 AM 07/26/19 06:00 Intake Total 1530 ml Output Total 1500 ml Balance 30 ml Laboratory Data 24H LABS Laboratory Tests 2 07/25/19 16:47: Bedside Glucose (Misc Panel) 146H 07/25/19 20:15: Bedside Glucose (Misc Panel) 92 07/26/19 06:06: Bedside Glucose (Misc Panel) 123H 07/26/19 07:23: Nucleated Red Blood Cells % (auto) 0.0, Anion Gap 4L, Glomerular Filtration Rate > 60.0, Calcium Level 9.3 07/26/19 11:34: Bedside Glucose (Misc Panel) 132H CBC/BMP Laboratory Tests 07/26/19 07:23 Microbiology Microbiology 07/25/19 Blood Culture - Preliminary, Resulted No growth after 24 hours . All specim... 07/25/19 Blood Culture - Preliminary, Resulted No growth after 24 hours . All specim... 07/24/19 Blood Culture - Preliminary, Resulted No growth after 24 hours . All specim... 07/24/19 Blood Culture - Preliminary, Resulted No growth after 24 hours . All specim... ALEE ABBASI PA-C Jul 26, 2019 14:04
[2019-07-26 20:00] VITALS: BP 102/54
[2019-07-26] MEDS: ATORVASTATIN 10 MG TAB PO SCH (20:30)
[2019-07-26] MEDS: ACETAMINOPHEN TAB 650MG DOSE (2X325MG) PO PRN (20:30)
--- NOTE | 2019-07-26 21:53 | ECGEPIP ---
[facility] - ED Test Date: 2019-07-25 Pat Name: CARLEEN WRIGHT Department: Room: [place] [address] Gender: Female Chief Talent Officer: edgar : 1960 Requested By: Froilan Redman Order Number: [id number] Reading MD: Gladys Mccauley Measurements Intervals [place] Rate: 92 P: 31 MD: 149 QRS: 11 QRSD: 87 T: 7 QT: 360 QTc: 447 Interpretive Statements SINUS RHYTHM POSSIBLE LEFT ATRIAL ENLARGEMENT LOW QRS VOLTAGE IN PRECORDIAL LEADS PRWP SIMILAR 10/09/15 Electronically Signed on 07-26-2019 21:53:09 EST by Gladys Mccauley
--- NOTE | 2019-07-27 01:20 | PHACANCOPD ---
PHARMACY VANCOMYCIN DOSING Pt Demographics Demographics Patient Age:59 , Weight:72.100 , Gender: female Adjusted Body Weight Date: 07/25/19, Adjusted Body Weight: [65] Kg Events Past 24 Hours Events Past 24 Hours: NO: Dialysis, Diuretic Therapy, Change in CrCl, Fever, Elevation in WBC, Pending Diagnostics, Pending Procedures, Other Vancomycin Vancomycin indication: RT BREAST ABCESS Vancomycin Target Ranges: 15-20 mcg/ml Vancomycin Load Y/N: No Load Dose Date Time Vancomycin Load Dose: Date: Time: Vancomycin Dose Date: 07/27/19. Current Vancomycin Dose: [1GM Q12H] Intermittent Dosing?: No Labs Labs Item Value Date Time White Blood Count 6.9 10^3/uL 07/26/19 0723 Creatinine 0.90 MG/DL 07/26/19 0723 Blood Urea Nitrogen 18 MG/DL 07/26/19 0723 Glomerular Filtration Rate > 60.0 07/26/19 0723 Vancomycin Level Trough 11.4 UG/ML 07/27/19 0038 Vital Signs Label Value Date Time Patient Temperature 96.9 degrees F 07/26/191999 Temperature Source Temporal 07/26/191999 Micro Microbiology 07/25/19 Blood Culture - Preliminary, Resulted No growth after 24 hours . All specim... 07/25/19 Blood Culture - Preliminary, Resulted No growth after 24 hours . All specim... 07/24/19 Blood Culture - Preliminary, Resulted No Growth after 48 hours. All Specime... 07/24/19 Blood Culture - Preliminary, Resulted No Growth after 48 hours. All Specime... Creatinine Clearance Date:07/25/19. Creatinine Clearance: [~45]. Pending Labs Trough 12-18 @1300 Assessment and Plan Maintaining Current Dose?: No Reason for dose change: Trough too low Pharmacist Note Pharmacist Note Date: 07/27/19. Pharmacist note:Trough of 11.4 is below target range. dosing increased to 1000mg q12h. Will monitor and make adjustments as needed. CATHRYN REZA PHARMACY Jul 27, 2019 01:20
[2019-07-27] MEDS: VANCOMYCIN HCL 1,000 MG, VIAL MATE ADAPTER 1 EACH in D5W 250 ML IV SCH (02:42)
[2019-07-27 06:08] VITALS: BP 108/67
[2019-07-27] MEDS: HumaLOG INSULIN (NovoLOG) PER UNIT SC SCH ×2 (07:51→12:07)
[2019-07-27] MEDS: PANTOPRAZOLE 40MG TAB (PROTONIX) PO SCH (07:55)
[2019-07-27] MEDS: DOCUSATE SODIUM 100 MG CAP PO SCH (07:55)
[2019-07-27] MEDS: CALCIUM/VITAMIN D 500 MG TAB PO SCH (07:55)
[2019-07-27] MEDS: LORATADINE 10 MG TAB PO SCH (07:55)
[2019-07-27] MEDS: HEPARIN SOD (PORCINE) 5000 UNITS/ML VIAL SQ SCH (07:56)
[2019-07-27] MEDS: ASPIRIN 81 MG ENTERIC TAB PO SCH (07:56)
[2019-07-27] MEDS: ERYTHROMYCIN OPHTH OINT OD SCH (07:56)
[2019-07-27] MEDS: oxyBUTYnin *DITROPAN XL* 5 MG TABCR PO SCH (07:56)
[2019-07-27 09:00] VITALS: BP 102/58
[2019-07-27] MEDS: lisinopriL 20 MG TAB PO SCH (09:00)
[2019-07-27] MEDS: hydroCHLOROthiazide 25 MG TAB PO SCH (09:00)
--- NOTE | 2019-07-27 11:03 | REP ---
Focused right breast sonography: History: Breast abscess. Comparison sonography July 25, 2019. Sonographic findings: The right breast scanned 4 o'clock to 6 o'clock. Open draining wound is seen at 5 o'clock. There is superficial soft tissue edema is seen. No evidence of drainable fluid collection is seen today. Electronically Signed by Angel Smith MD 07/27/2019 10:55 A
[2019-07-27] MEDS ORDERED: DOXY100C PO (12:51)
--- NOTE | 2019-07-27 13:15 | DS.PDOC ---
Discharge Summary General Date of Admission Jul 25, 2019 at 00:42 Date of Discharge 07/27/19 Attending Physician: CHRISTIAN RIVERA MD Discharge Summary PROCEDURES PERFORMED DURING STAY: [None]. ADMITTING DIAGNOSES: 1. Abscess - Right Breast 2. T2DM 3. HTN 4. GERD 5. Obesity 6. Urge Incontinence DISCHARGE DIAGNOSES: 1. Abscess - Right Breast 2. T2DM 3. HTN 4. GERD 5. Obesity 6. Urge Incontinence COMPLICATIONS/CHIEF COMPLAINT: Abscess Of Right Breast. HISTORY OF PRESENT ILLNESS: "This is a 59-year-old female who presents with complaints of having a "sore" right breast since Thursday (07/19/19). Initially she had a small pimple that eventually grew to cover the whole breast. At its worst the pain was 10/10. It improved to 3 out of 10 after receiving morphine. She's never had this kind of discomfort before. Associated symptoms include redness of the skin and discharge. She denies having fevers, chills, nausea, vomiting. Per discussion with Dr. Shay, she was taking Bactrim on an outpatient basis and was given Rocephin in the ER; wound cultures have been sent." HOSPITAL COURSE: Patient was admitted to the hospital 07/25/19 after failing outpatient Bactrim for R breast abscess. In the ER she was provided Morphine for severe pain, Rocephin IM; IV vancomycin started (+MRSA from 07/22/19 culture) and Percocet provided for pain on the floor. 07/25/19 USG of the R breast impression: "The aspect of the right breast is scanned through the area of redness and erythema. 3 o'clock day o'clock. There is apparently a draining open wound at 5 o'clock. At 5 o'clock in the area of the open wound there is a superficial subcutaneous collection seen measuring 3.0 by 0.4 by 1.8 cm. This is directly under the wound. No other abnormal collection is seen. No mass lesion is observed. 07/27/19 USG of the R breast impression: "The right breast scanned 4 o'clock to 6 o'clock. Open draining wound is seen at 5 o'clock. There is superficial soft tissue edema is seen. No evidence of drainable fluid collection is seen today." Patient reported she is ready to go home today. She has family at home (on the phone during d/c discussion) that will help her to take care of her wound. She will follow-up with her PCP on Thursday and will take the full course of her abx as Rx unless advised otherwise by her doctor. DISCHARGE MEDICATIONS: Please see below. ALLERGIES: Please see below. PHYSICAL EXAMINATION ON DISCHARGE: VITAL SIGNS: Please see below. General Exam: Positive: Alert, Cooperative, No Acute Distress Eye Exam: Positive: Conjunctiva & lids normal (erythematous R lower lid) Neck Exam: Positive: Supple; Negative: JVD, thyromegaly Chest Exam: Positive: Clear to auscultation, Normal air movement Heart Exam: Positive: Rate Normal, Regular Rhythm, Normal S1, Normal S2; Negative: Murmurs, Rubs Abdomen Exam: Positive: Normal bowel sounds, Soft; Negative: Tenderness, Hepatospenomegaly Extremity Exam: Positive: Normal pulses; Negative: Clubbing, Cyanosis, Edema Skin Exam: Positive: Other skin issue (abscess over right breast; wound margins have regressed from areas marked by at least 1cm. induration has resolved. erythema greatly improved. good wound drainage; no TTP over the wound.) Psych Exam: Positive: Mental status NL LABORATORY DATA: Please see below. IMAGING: see above ACTIVITY: [As tolerated]. DIET: as tolerated DISCHARGE PLAN: Wound has improved per physical exam and breast USG. Discharge home following Vancomycin dose as scheduled. Provide wound care instructions. DISPOSITION: Discharge home DISCHARGE INSTRUCTIONS: 1. Wound care instructions: Remove bandage prior to daily shower. After shower, gently clean the area around the wound with Povidone Iodine as demonstrated. Apply clean, dry bandage daily. 2. Please take all your antibiotics as prescribed 3. Follow-up with PCP on Thursday ITEMS TO FOLLOWUP ON ON OUTPATIENT: 1. as above DISCHARGE CONDITION: [Stable]. TIME SPENT ON DISCHARGE: Greater than 32 minutes. Vital Signs/I&Os Vital Signs Date Time Temp Pulse Resp B/P (MAP) Pulse Ox O2 Delivery O2 Flow Rate FiO2 07/27/19 09:00 102/58 07/27/19 06:08 96.3 82 16 94 Room Air I&O- Last 24 Hours up to 6 AM 07/27/19 06:00 Intake Total 1620 ml Output Total 1650 ml Balance -30 ml Laboratory Data Labs 24H Laboratory Tests 2 07/26/19 16:26: Bedside Glucose (Misc Panel) 148H 07/26/19 20:29: Bedside Glucose (Misc Panel) 128H 07/27/19 00:38: Vancomycin Level Trough 11.4 07/27/19 06:12: Bedside Glucose (Misc Panel) 116H 07/27/19 11:36: Bedside Glucose (Misc Panel) 217H FSBS Laboratory Tests Test 07/26/19 16:26 07/26/19 20:29 07/27/19 06:12 07/27/19 11:36 Range/Units Bedside Glucose (Misc Panel) 148 128 116 217 80-115 MG/DL Microbiology Microbiology 07/25/19 Blood Culture - Preliminary, Resulted No Growth after 48 hours. All Specime... 07/25/19 Blood Culture - Preliminary, Resulted No Growth after 48 hours. All Specime... 07/24/19 Blood Culture - Preliminary, Resulted No Growth after 48 hours. All Specime... 07/24/19 Blood Culture - Preliminary, Resulted No Growth after 48 hours. All Specime... Discharge Medications Scheduled Aspirin (Aspirin EC) 81 Mg Tab, 81 MG PO DAILY, (Reported) Atorvastatin Calcium (Atorvastatin Calcium) 10 Mg Tablet, 10 MG PO QHS, (Reported) Betaxolol Hcl (Betaxolol HCl) 0.5% 5ML Drops, 2 DROP OD BID, (Reported) Brimonidine Tartrate (Brimonidine Tartrate) 0.2% 5ML Drops, 2 DROP OD BID, (Reported) Calcium Carbonate (Calcium) 600 Mg Tab, 600 MG PO DAILY, (Reported) Doxycycline Hyclate (Doxycycline Hyclate) 100 Mg Capsule, 1 CAP PO BID Ergocalciferol (Vitamin D2) (Vitamin D2) 50,000 Units Cap, 50,000 UNITS PO Q2WK, (Reported) Esomeprazole Magnesium (Nexium) 40 Mg Cap, 40 MG PO DAILY, (Reported) Lisinopril/Hydrochlorothiazide (Lisinopril-Hctz 20-25 mg Tab) 1 Each Tablet, 1 TAB PO DAILY, (Reported) Loratadine (Loratadine) 10 Mg Tab, 10 MG PO DAILY, (Reported) Metformin HCl (Metformin HCl) 1,000 Mg Tablet, 1,000 MG PO DAILY, (Reported) Multivitamin (Multivitamins) 1 Cap Cap, 1 CAP PO DAILY, (Reported) Oxybutynin Chloride (Oxybutynin Chloride ER) 10 Mg Tab, 10 MG PO DAILY, (Reported) Sulfamethoxazole/Trimethoprim (Bactrim Ds Tablet) 1 Each Tablet, 1 TAB PO BID, (Reported) STARTED ON 07/22 Scheduled PRN Azelastine HCl (Azelastine HCl) 0.1% [place].pump, 2 SPRAY NARES BID PRN for ALLERGIES, (Reported) Allergies Coded Allergies: No Known Drug Allergies (Verified Allergy, Unknown, 03/05/19) ALEE ABBASI PA-C Jul 27, 2019 13:15
[2019-07-27] MEDS ORDERED: VANCOMYCIN HCL 1,000 MG, VIAL MATE ADAPTER 1 EACH in D5W 250 ML IV SCH (14:00)
== END 2019-07-27 13:10 | disposition home or self-care (01) | DRG 600 ==
LOC: M ED 22:14 → M ED INP 07-25 00:42 → EEVIPCON 07-25 00:42 → M MS4PR 07-25 12:20
PROVIDERS: ADMIT Internal Medicine; ATTEND Internal Medicine Nephrology
DX: N61.1 Abscess of the breast and nipple (principal); L03.818 Cellulitis of other sites; I10 Essential (primary) hypertension; E11.9 Type 2 diabetes mellitus without complications; E66.9 Obesity, unspecified; Z68.31 Body mass index [BMI] 31.0-31.9, adult; B95.62 Methicillin resistant Staphylococcus aureus infection as the cause of diseases classified elsewhere; K21.9 Gastro-esophageal reflux disease without esophagitis; Z79.82 Long term (current) use of aspirin; Z79.899 Other long term (current) drug therapy; F41.9 Anxiety disorder, unspecified; K57.30 Diverticulosis of large intestine without perforation or abscess without bleeding; M19.90 Unspecified osteoarthritis, unspecified site; R32 Unspecified urinary incontinence

== ENCOUNTER → 2020-01-23 | Outpatient (CLI) | payer MEDICARE, MEDICAID ==
[~2020-01-23] MED LIST changes: +ATOR1TAB19 PO; +AZEL0.1S NARES; +BACT800T5 PO; +BETA0.5S9 OD; +BRIM0.2S13 OD; +DOXY100C PO; +LISI20TA20 PO; +METF10004 PO; -OXYB10TA2 PO; +OXYB10TA23 PO; +VITA50005 PO
[2020-01-23 11:12] LABS: ALBUMIN 3.4 GM/DL (3.2-5.2); ALT/SGPT 35 U/L (12-78); BILIRUBIN,TOTAL 0.9 MG/DL (0.2-1.0); BLOOD UREA NITROGEN 18 MG/DL (7-18); CALCIUM LEVEL 9.1 MG/DL (8.8-10.2); CARBON DIOXIDE LEVEL 33 MEQ/L (21-32); CHLORIDE LEVEL 100 MEQ/L (98-107); CHOLESTEROL LEVEL 134 MG/DL (<200); CHOLESTEROL RISK RATIO 2.913 (<5); CREATININE FOR GFR 0.69 MG/DL (0.55-1.30); FOLATE 23.3 NG/ML; GLOMERULAR FILTRATION RATE > 60.0 (>45); GLUCOSE, FASTING 116 MG/DL (70-100); HDL CHOLESTEROL 46 MG/DL (>40); LDL CHOLESTEROL 56 MG/DL (<100); NON-HDL-C 88 MG/DL; POTASSIUM SERUM 4.2 MEQ/L (3.5-5.1); SODIUM LEVEL 138 MEQ/L (136-145); TOTAL PROTEIN 6.8 GM/DL (6.4-8.2); TRIGLYCERIDES LEVEL 162 MG/DL (<150); VITAMIN B12 LEVEL 323 PG/ML
[2020-01-23 11:13] LABS: MALB URINE SIEMENS 5.5 MG/L; MAU/CREAT RATIO 3.6 MCG/MG (0.0-30.0)
== END ==
LOC: M WUC 08:49
PROVIDERS: ATTEND Family Medicine
DX: E11.9 Type 2 diabetes mellitus without complications (principal); I10 Essential (primary) hypertension; G56.03 Carpal tunnel syndrome, bilateral upper limbs; E03.9 Hypothyroidism, unspecified; E78.5 Hyperlipidemia, unspecified

== ENCOUNTER → 2020-02-01 | Outpatient (CLI) | payer MEDICARE, MEDICAID ==
--- NOTE | 2020-02-01 14:52 | REP ---
RIGHT KNEE SERIES: Five views. HISTORY: Contusion. Comparison right knee radiographs are from January 12, 2018. FINDINGS: There is severe three compartment right knee osteoarthritis with joint space narrowing and large osteophytes. The osteoarthritis is most pronounced in the patellofemoral compartment. There is no erosive change. No definite joint effusion is seen. No fractures noted. IMPRESSION: No traumatic abnormality noted. Severe three compartment right knee osteoarthritis. Changes are similar to the January 12, 2018 prior study. Electronically Signed by Angel Smith MD 02/01/2020 03:02 P
== END ==
LOC: M WUC 12:04
PROVIDERS: ATTEND Physician Assistant
DX: S80.01XA Contusion of right knee, initial encounter (principal); M17.11 Unilateral primary osteoarthritis, right knee; X58.XXXA Exposure to other specified factors, initial encounter; Y92.89 Other specified places as the place of occurrence of the external cause

== ENCOUNTER → 2020-04-24 | Outpatient (CLI) | payer MEDICARE, MEDICAID ==
[2020-04-24 17:41] LABS: FREE T4 1.08 NG/DL (0.76-1.46); THYROID STIMULATING HORMONE 4.04 uIU/ML (0.358-3.740)
== END ==
LOC: M WUC 15:01
PROVIDERS: ATTEND Student in an Organized Health Care Education/Training Program
DX: R53.83 Other fatigue (principal)

== ENCOUNTER 2020-09-01 12:33 | Emergency (ER) | payer MEDICARE, MEDICAID ==
[~2020-09-01] VITALS: Ht 149.9 cm; Wt 69.5 kg
[2020-09-01] MEDS ORDERED: MYRB50TA (12:50)
[2020-09-01] MEDS ORDERED: FLUO10CA16 (12:50)
[2020-09-01] MEDS ORDERED: LIDOCAINE 5% (LIDODERM) PATCH TD ONE (13:30)
[2020-09-01] MEDS ORDERED: ACETAMINOPHEN 500 MG TAB PO ONE (13:30)
--- NOTE | 2020-09-01 14:12 | REP ---
INDICATION: r/o constipation. COMPARISON: None. FINDINGS: KUB shows the intestinal gas pattern to be nonspecific. The organ silhouettes insofar as delineated are unremarkable. There is no evidence of free intraperitoneal air. The stool pattern is within normal limits. IMPRESSION: Nonspecific. <Electronically signed by Finesse Cat > 09/01/20 [id number]
[2020-09-01] MEDS ORDERED: LIDO5DIS41 TOP (14:36)
[2020-09-01 14:41] VITALS: BP 135/74
[2020-09-01] MEDS ORDERED: **NOTE PATIENT COMMENT** MISC XX SCH (21:00)
== END 2020-09-01 14:51 | disposition home or self-care (01) ==
LOC: EDBD 12:33 → M ED 12:33
DX: M54.5 Low back pain (principal); E11.9 Type 2 diabetes mellitus without complications; I10 Essential (primary) hypertension; E78.5 Hyperlipidemia, unspecified; K21.9 Gastro-esophageal reflux disease without esophagitis; F41.9 Anxiety disorder, unspecified; Z79.82 Long term (current) use of aspirin; Z79.84 Long term (current) use of oral hypoglycemic drugs; Z79.899 Other long term (current) drug therapy

== ENCOUNTER → 2020-12-20 | Outpatient (REF) | payer MEDICARE, MEDICAID ==
[~2020-12-20] MED LIST changes: +FLUO10CA16; +LIDO5DIS41 TOP; +MYRB50TA
[2020-12-20 15:33] LABS: HEMATOCRIT 42.9 % (36.0-47.0); HEMOGLOBIN 13.6 g/dl (12.0-15.5); MEAN CORPUSCULAR HGB CONC 31.7 g/dl (32.0-36.5); MEAN CORPUSCULAR VOLUME 91.5 fl (80.0-96.0); PLATELET COUNT, AUTOMATED 343 10^3/uL (150-450); RED BLOOD COUNT 4.69 10^6/uL (4.00-5.40); WHITE BLOOD COUNT 7.6 10^3/uL (4.0-10.0)
[2020-12-20 15:56] LABS: HEMOGLOBIN A1c 7.1 %
[2020-12-20 16:13] LABS: ALBUMIN 3.5 GM/DL (3.2-5.2); ALT/SGPT 28 U/L (12-78); BILIRUBIN,TOTAL 0.5 MG/DL (0.2-1.0); BLOOD UREA NITROGEN 15 MG/DL (7-18); CALCIUM LEVEL 9.4 MG/DL (8.8-10.2); CARBON DIOXIDE LEVEL 32 MEQ/L (21-32); CHLORIDE LEVEL 100 MEQ/L (98-107); CHOLESTEROL LEVEL 138 MG/DL (<200); CHOLESTEROL RISK RATIO 3.136 (<5); CREATININE FOR GFR 0.63 MG/DL (0.55-1.30); GLOMERULAR FILTRATION RATE > 60.0 (>45); GLUCOSE, FASTING 118 MG/DL (70-100); HDL CHOLESTEROL 44 MG/DL (>40); LDL CHOLESTEROL 60 MG/DL (<100); NON-HDL-C 94 MG/DL; POTASSIUM SERUM 4.3 MEQ/L (3.5-5.1); SODIUM LEVEL 137 MEQ/L (136-145); TOTAL PROTEIN 6.8 GM/DL (6.4-8.2); TRIGLYCERIDES LEVEL 171 MG/DL (<150)
[2020-12-20 16:14] LABS: FOLATE 8.7 NG/ML; TOTAL 25(OH) VITAMIN D 29.3 NG/ML (30.0-100.0); VITAMIN B12 LEVEL 241 PG/ML
== END ==
LOC: M SFHCPLAZ 12:10
PROVIDERS: ATTEND Family Medicine
DX: K21.9 Gastro-esophageal reflux disease without esophagitis (principal); E11.9 Type 2 diabetes mellitus without complications; I10 Essential (primary) hypertension; E55.9 Vitamin D deficiency, unspecified; E78.2 Mixed hyperlipidemia; E03.9 Hypothyroidism, unspecified; G56.03 Carpal tunnel syndrome, bilateral upper limbs

== ENCOUNTER → 2020-12-20 | Outpatient (CLI) | payer MEDICARE, MEDICAID ==
--- NOTE | 2020-12-20 13:10 | REPPI ---
INDICATION: PAIN LEFT THUMB COMPARISON: None. TECHNIQUE: AP, lateral, bilateral oblique views left hand. FINDINGS: Moderate arthritic changes include periarticular sclerosis with joint space narrowing and marginal spurring primarily noted at the 1st metacarpophalangeal joint as well as the interphalangeal joints and 1st and 2nd carpometacarpal joints. Increased sclerosis and joint space narrowing also identified along the radiocarpal joint line. No acute fracture or dislocation. IMPRESSION: Moderate generalized osteoarthritic degenerative changes. No acute fracture or dislocation. <Electronically signed by Alton Melendrez > 12/20/20 [id number]
== END ==
LOC: M PLAIMG 12:23
PROVIDERS: ATTEND Family Medicine
DX: M19.042 Primary osteoarthritis, left hand (principal); M79.645 Pain in left finger(s); K21.9 Gastro-esophageal reflux disease without esophagitis; E11.9 Type 2 diabetes mellitus without complications; I10 Essential (primary) hypertension; E55.9 Vitamin D deficiency, unspecified; E78.2 Mixed hyperlipidemia; E03.9 Hypothyroidism, unspecified; G56.03 Carpal tunnel syndrome, bilateral upper limbs
CPT/HCPCS: 36415; 73130; 80053; 80061; 82306; 82607; 82746; 83036; 84443; 85027; G0463

== ENCOUNTER → 2021-01-21 | Outpatient (CLI) | payer MEDICARE, MEDICAID ==
--- NOTE | 2021-01-21 14:08 | REPMRS ---
Patient History The patient states she has not had a clinical breast exam in over a year. No known family history of cancer. Patient states no breast complaints today. Patient has signed MRS History Sheet. Digital Woman Screen Mammo: January 21, 2021 - Exam #: [id number] Bilateral CC and MLO view(s) were taken. Technologist: Cris Holland, Technologist Prior study comparison: June 18, 2017, digital woman screen mammo performed at [facility]. July 04, 2015, digital woman screen mammo performed at [facility]. FINDINGS: There are scattered fibroglandular densities. Screening. Digital screening (2D) mammography was performed bilaterally in the CC and MLO projections. Additionally, breast tomosynthesis (3D mammography) was performed bilaterally in the CC and MLO projections. Todays exam was compared to the prior exam/exams. By history, the patient has no complaints of a palpable breast abnormality or other significant breast complaints. The breasts are unchanged in size and shape. There are no david-soft tissue densities or spiculated masses. There is no internal architectural distortion.Once again, stable benign appearing calcifications are seen. There are no suspicious david-calcific clusters. Skin thickening or nipple retraction is not present. IMPRESSION: BI-RADS Category 2- Benign Findings. There is no evidence of malignant alteration of the breasts. Followup examination recommended in one year. The Volpara volumetric breast density category is B, there are scattered areas of fibroglandular densities. This mammogram was read with the assistance of [employer],an FDA approved computer aided detection system for mammography. The lifetime Tyrer-Cuzick score is 9.1 % Negative x-ray reports should not delay surgical consultation if a dominant or clinically suspicious mass is present. Not all breast cancers can be identified by mammography. Therefore, we recommend that you continue to perform regular breast self-examination and physical examination and then promptly contact your physician of any concerns or changes. Adenosis and dense breasts may obscure an underlying neoplasm. Assessment: BI-RADS/ACR category 2 mammogram. Benign Findings. Recommendation Routine screening mammogram of both breasts in 1 year. Electronically Signed By: Finesse Cat DO 01/21/21 [id number]
--- NOTE | 2021-01-21 14:16 | DEXAMM ---
INDICATION: Z13.820 SCREENING FOR OSTEOPOROSIS. COMPARISON: 07/04/2015 as well as other prior exams. TECHNIQUE: Bone density was measured using dual-energy x-ray absorptiometry (DEXA). FINDINGS: AP SPINE L1-L4 BMD 1.061 g/cm2 Young Adult T-Score -1.1 Age Matched Z-Score 0.3. LT FEMUR, TOTAL BMD 0.977 g/cm2 Young Adult T-Score -0.2 Age Matched Z-Score 0.8. LT NECK BMD 0.763 g/cm2 Young Adult T-Score -2.0 Age Matched Z-Score -0.6. RT FEMUR, TOTAL BMD 0.987 g/cm2 Young Adult T-Score -0.2 Age Matched Z-Score 0.9. RT NECK BMD 0.818 g/cm2 Young Adult T-Score -1.6 Age Matched Z-Score -0.2. IMPRESSION: There is low bone density of the spine. There is low bone density of the left hip. There is low bone density of the right hip. The density of the spine has decreased 4.6% since the initial exam on 09/03/2001. The density of the spine increased 0.1% since most recent exam on 07/04/2015. The density of the left hip has decreased 36.1% since initial exam on 09/03/2001. The density of the left hip has increased 0.2% since most recent exam on 07/04/2015. The density of the right hip has decreased 1.6% since the initial exam on 09/03/2001. The density of the right hip has decreased 6.7% since the most recent exam on 07/04/2015. FOLLOW-UP: Recommendation for the next bone density exam: 2 years. <Electronically signed by Eliu Reyes > 01/21/21 [id number]
== END ==
LOC: M WHC 12:47
PROVIDERS: ATTEND Family Medicine
DX: Z12.31 Encounter for screening mammogram for malignant neoplasm of breast (principal); Z13.820 Encounter for screening for osteoporosis; M85.851 Other specified disorders of bone density and structure, right thigh

== ENCOUNTER 2021-04-03 10:01 | Emergency (ER) | payer MEDICARE, MEDICAID ==
[~2021-04-03] VITALS: Ht 149.9 cm; Wt 77.3 kg
[~2021-04-03 10:01] MED LIST changes: -DOXY100C PO; +DOXY100C3 PO; +ERGO500029 PO; -VITA50005 PO
--- NOTE | 2021-04-03 10:35 | REP ---
INDICATION: trauma COMPARISON: None. TECHNIQUE: Axial noncontrast images from the skull base to the vertex with coronal reformations. This CT examination was performed using the following dose reduction techniques: Automated exposure control, adjustment of mA and/or kv according to the patient's size, and use of iterative reconstruction technique. FINDINGS: The ventricles, sulci, and cisterns are normal in position and appearance. Reyes-white differentiation is maintained. No acute intracranial hemorrhage, mass/mass effect, pathology or trauma/injury. No evidence for acute infarction. No extra-axial fluid collection. Calvarium is intact. Paranasal sinuses and mastoid air cells are clear. Subtle deformity to the nasal bones may represent nonacute change. IMPRESSION: No evidence for acute intracranial pathology or trauma/injury. <Electronically signed by Alton Melendrez > 04/03/21 [id number]
--- NOTE | 2021-04-03 10:37 | REP ---
INDICATION: trauma COMPARISON: None. TECHNIQUE: Axial noncontrast images from the skull base to the thoracic inlet with coronal and sagittal re-formations This CT examination was performed using the following dose reduction techniques: Automated exposure control, adjustment of mA and/or kv according to the patient's size, and use of iterative reconstruction technique. FINDINGS: Advanced multilevel degenerative changes include osteophytosis, endplate sclerosis, disc space narrowing and facet hypertrophy. Alignment is relatively maintained. No evidence for acute fracture/compression injury or subluxation. Spinal canal is relatively patent. Posterior elements and spinous processes are intact. IMPRESSION: Advanced multilevel degenerative changes. No evidence for acute fracture/compression injury or subluxation. <Electronically signed by Alton Melendrez > 04/03/21 1039
[2021-04-03 10:51] LABS: BASO % 0.3 % (0.0-1.0); EOS # 0.1 10^3/uL (0.0-0.5); EOS % 1.5 % (0.0-3.0); HEMATOCRIT 39.8 % (36.0-47.0); HEMOGLOBIN 12.8 g/dl (12.0-15.5); LYMPH # 1.3 10^3/uL (1.5-5.0); LYMPH % 18.3 % (24.0-44.0); MEAN CORPUSCULAR HEMOGLOBIN 29.4 pg (27.0-33.0); MEAN CORPUSCULAR HGB CONC 32.2 g/dl (32.0-36.5); MEAN CORPUSCULAR VOLUME 91.3 fl (80.0-96.0); MONO # 0.6 10^3/uL (0.0-0.8); MONO % 8.5 % (2.0-8.0); NEUTROPHILS # 5.1 10^3/uL (1.5-8.5); PLATELET COUNT, AUTOMATED 302 10^3/uL (150-450); RED BLOOD COUNT 4.36 10^6/uL (4.00-5.40); WHITE BLOOD COUNT 7.2 10^3/uL (4.0-10.0)
--- NOTE | 2021-04-03 10:51 | REP ---
INDICATION: Dizziness. COMPARISON: Comparison chest x-ray July 25, 2019. TECHNIQUE: Two views.. FINDINGS: The lungs are well inflated and free of infiltrate. The pleural angles are sharp. The heart size is normal. Pulmonary vasculature is not increased. No significant bony abnormality is seen. EKG monitoring electrodes are seen. IMPRESSION: No active disease. <Electronically signed by Carl Smith > 04/03/21 104
[2021-04-03 11:32] LABS: ALBUMIN 2.8 GM/DL (3.2-5.2); ALT/SGPT 30 U/L (12-78); BILIRUBIN,DIRECT 0.1 MG/DL (0.0-0.2); BILIRUBIN,TOTAL 0.4 MG/DL (0.2-1.0); BLOOD UREA NITROGEN 17 MG/DL (7-18); CALCIUM LEVEL 8.9 MG/DL (8.8-10.2); CARBON DIOXIDE LEVEL 31 MEQ/L (21-32); CHLORIDE LEVEL 103 MEQ/L (98-107); CK-MB VALUE MASS < 1.0 NG/ML (<3.6); CPK CREATINE PHOSPHOKINASE 42 U/L (26-192); CREATININE FOR GFR 0.72 MG/DL (0.55-1.30); GLOMERULAR FILTRATION RATE > 60.0 (>45); GLUCOSE, FASTING 189 MG/DL (70-100); MB/CK RELATIVE INDEX 2.38 (< OR =4); POTASSIUM SERUM 3.8 MEQ/L (3.5-5.1); SODIUM LEVEL 137 MEQ/L (136-145); TOTAL PROTEIN 6.6 GM/DL (6.4-8.2); TROPONIN I < 0.02 NG/ML (< 0.10)
[2021-04-03] MEDS ORDERED: MECLIZINE 25 MG TABLET PO ONE (12:05)
[2021-04-03] MEDS ORDERED: MECL1TAB31 PO (14:37)
[2021-04-03 14:56] VITALS: BP 117/67
--- NOTE | 2021-04-04 18:43 | ECGEPIP ---
[facility] - ED Test Date: 2021-04-03 Pat Name: CARLEEN WRIGHT Department: Room: - Gender: Female [employer]: : 1960 Requested By: PAIGE Barbosa Order Number: [id number] Reading MD: Gladys Mccauley Measurements Intervals [place] Rate: 82 P: 34 GA: 156 QRS: 16 QRSD: 76 T: 12 QT: 388 QTc: 453 Interpretive Statements Normal sinus rhythm Low voltage QRS prwp decreased rate 07/25/19 Electronically Signed on 04-04-2021 18:43:07 EDT by Gladys Mccauley
== END 2021-04-03 15:03 | disposition home or self-care (01) ==
LOC: M ED 10:01 → EDBD 10:01 → M ED 15:03
DX: R42 Dizziness and giddiness (principal); M50.30 Other cervical disc degeneration, unspecified cervical region; M25.78 Osteophyte, vertebrae; M48.02 Spinal stenosis, cervical region; E11.9 Type 2 diabetes mellitus without complications; I10 Essential (primary) hypertension; E55.9 Vitamin D deficiency, unspecified; H40.9 Unspecified glaucoma; E78.5 Hyperlipidemia, unspecified; K21.9 Gastro-esophageal reflux disease without esophagitis; K75.81 Nonalcoholic steatohepatitis (NASH); F41.9 Anxiety disorder, unspecified; Z79.82 Long term (current) use of aspirin; Z79.84 Long term (current) use of oral hypoglycemic drugs; Z79.899 Other long term (current) drug therapy

== ENCOUNTER → 2021-05-17 | Outpatient (CLI) | payer MEDICARE, MEDICAID ==
[~2021-05-17] MED LIST changes: +MECL1TAB31 PO
[2021-05-17 21:02] LABS: THYROID STIMULATING HORMONE 2.89 uIU/ML (0.358-3.740)
== END ==
LOC: M PLALAB 12:55
PROVIDERS: ATTEND Student in an Organized Health Care Education/Training Program
DX: R20.0 Anesthesia of skin (principal)

== ENCOUNTER → 2021-07-22 | Outpatient (CLI) | payer MEDICARE, MEDICAID ==
[~2021-07-22] MED LIST changes: -FLUO10CA16; +FLUO10CA18; -LISI20TA20 PO; +LISI20TA37 PO
== END ==
LOC: M EKG 14:18
PROVIDERS: ATTEND Student in an Organized Health Care Education/Training Program
DX: I10 Essential (primary) hypertension (principal)
CPT/HCPCS: 93005; G0463

== ENCOUNTER → 2022-08-14 | Outpatient (CLI) | payer MEDICARE, MEDICAID ==
[~2022-08-14] MED LIST changes: -MOME50SP; +NASO50SP3
[2022-08-14 14:09] LABS: BASO % 0.3 % (0.0-1.0); EOS # 0.2 10^3/uL (0.0-0.5); EOS % 1.8 % (0.0-3.0); HEMATOCRIT 42.5 % (36.0-47.0); HEMOGLOBIN 13.4 g/dl (12.0-15.5); LYMPH # 1.7 10^3/uL (1.5-5.0); LYMPH % 19.5 % (24.0-44.0); MEAN CORPUSCULAR HEMOGLOBIN 29.3 pg (27.0-33.0); MEAN CORPUSCULAR HGB CONC 31.5 g/dl (32.0-36.5); MEAN CORPUSCULAR VOLUME 92.8 fl (80.0-96.0); MONO # 0.8 10^3/uL (0.0-0.8); MONO % 8.9 % (2.0-8.0); NEUTROPHILS # 6.1 10^3/uL (1.5-8.5); NEUTROPHILS % 68.9 % (36.0-66.0); PLATELET COUNT, AUTOMATED 358 10^3/uL (150-450); RED BLOOD COUNT 4.58 10^6/uL (4.00-5.40); WHITE BLOOD COUNT 8.9 10^3/uL (4.0-10.0)
[2022-08-14 14:40] LABS: ALBUMIN 3.2 G/DL (3.2-5.2); ALKALINE PHOSPHATASE 268 U/L (46-116); ALT/SGPT 22 U/L (7.0-40); AST/SGOT 20 U/L (<34); BILIRUBIN,TOTAL 0.5 MG/DL (0.3-1.2); BLOOD UREA NITROGEN 13 MG/DL (9-23); CARBON DIOXIDE LEVEL 32 MMOL/L (20-31); CHLORIDE LEVEL 102 MMOL/L (98-107); CREATININE FOR GFR 0.75 MG/DL (0.55-1.30); GLOMERULAR FILTRATION RATE > 60.0 (>45); GLUCOSE, FASTING 144 MG/DL (74-106); HDL CHOLESTEROL 43.4 MG/DL (> 40); POTASSIUM SERUM 4.9 MMOL/L (3.5-5.1); SODIUM LEVEL 141 MMOL/L (136-145); TOTAL PROTEIN 6.4 G/DL (5.7-8.2)
[2022-08-14 14:41] LABS: THYROID STIMULATING HORMONE 2.845 uIU/ML (0.55-4.78)
[2022-08-14 15:34] LABS: HEMOGLOBIN A1c 7.3 % (4.0-6.0)
== END ==
LOC: M PLALAB 10:33
PROVIDERS: ATTEND Physician Assistant
DX: I10 Essential (primary) hypertension (principal); E78.5 Hyperlipidemia, unspecified; E11.9 Type 2 diabetes mellitus without complications

== ENCOUNTER 2022-11-21 23:08 | Observation (INO) | payer MEDICARE, MEDICAID ==
[~2022-11-21] VITALS: Ht 138.4 cm; Wt 69.3 kg
[~2022-11-21 23:08] MED LIST changes: +BETA0.5S11 OD; -BETA0.5S9 OD; -FLUO10CA18; +FLUO10CA18 PO; -MYRB50TA; +MYRB50TA PO
[2022-11-22 01:32] LABS: BASO % 0.1 % (0.0-1.0); EOS % 0.1 % (0.0-3.0); HEMATOCRIT 45.8 % (36.0-47.0); HEMOGLOBIN 14.9 g/dl (12.0-15.5); LYMPH # 1.4 10^3/uL (1.5-5.0); LYMPH % 13.1 % (24.0-44.0); MEAN CORPUSCULAR HEMOGLOBIN 28.8 pg (27.0-33.0); MEAN CORPUSCULAR HGB CONC 32.5 g/dl (32.0-36.5); MEAN CORPUSCULAR VOLUME 88.6 fl (80.0-96.0); MONO # 0.9 10^3/uL (0.0-0.8); MONO % 8.4 % (2.0-8.0); NEUTROPHILS % 77.7 % (36.0-66.0); PLATELET COUNT, AUTOMATED 327 10^3/uL (150-450); RED BLOOD COUNT 5.17 10^6/uL (4.00-5.40); WHITE BLOOD COUNT 10.3 10^3/uL (4.0-10.0)
[2022-11-22 01:54] LABS: LIPASE 17 U/L (12-53)
[2022-11-22 01:55] LABS: CPK CREATINE PHOSPHOKINASE 81 U/L (34-145)
[2022-11-22 01:56] LABS: ALBUMIN 3.5 G/DL (3.2-5.2); ALKALINE PHOSPHATASE 279 U/L (46-116); ALT/SGPT 29 U/L (7.0-40); AST/SGOT 24 U/L (<34); BILIRUBIN,DIRECT 0.3 MG/DL (<0.4); BILIRUBIN,TOTAL 0.8 MG/DL (0.3-1.2); BLOOD UREA NITROGEN 23 MG/DL (9-23); CALCIUM LEVEL 9.1 MG/DL (8.3-10.6); CARBON DIOXIDE LEVEL 30 MMOL/L (20-31); CHLORIDE LEVEL 100 MMOL/L (98-107); CK-MB VALUE MASS < 1.0 NG/ML (<3.6); CREATININE FOR GFR 0.81 MG/DL (0.55-1.30); GLOMERULAR FILTRATION RATE > 60.0 (>45); GLUCOSE, FASTING 147 MG/DL (74-106); INR 0.91; MB/CK RELATIVE INDEX 1.23 (< OR =4); POTASSIUM SERUM 3.9 MMOL/L (3.5-5.1); PROTHROMBIN TIME 12.4 SECONDS (12.5-14.5); SODIUM LEVEL 137 MMOL/L (136-145); TOTAL PROTEIN 7.2 G/DL (5.7-8.2)
[2022-11-22] MEDS ORDERED: CIPROFLOXACIN 400 MG in IV 1 EA IV ONE (05:25)
[2022-11-22] MEDS ORDERED: metroNIDAZOLE 500 MG in IV 1 EA IV ONE (05:25)
[2022-11-22 07:46] LABS: RSV AMPLIFICATION NEGATIVE (NEGATIVE)
[2022-11-22] MEDS ORDERED: GLUCAGON INJ 1MG VIAL SC PRN (08:50)
[2022-11-22] MEDS ORDERED: GLUCOSE 4GM CHEW TABLET PO PRN (08:50)
[2022-11-22] MEDS ORDERED: DEXTROSE 50% 50ML SYRINGE IV PRN (08:50)
[2022-11-22] MEDS: MIRALAX *UNIT DOSE* 17GM PACKET PO SCH (10:24)
[2022-11-22] MEDS: NS 1,000 ML IV SCH ×2 (10:24→18:13)
[2022-11-22] MEDS: PANTOPRAZOLE 40MG VIAL IV SCH (10:24)
[2022-11-22 11:56] LABS: HEMATOCRIT 41.4 % (36.0-47.0); HEMOGLOBIN 13.5 g/dl (12.0-15.5); MEAN CORPUSCULAR HGB CONC 32.6 g/dl (32.0-36.5); PLATELET COUNT, AUTOMATED 264 10^3/uL (150-450); RED BLOOD COUNT 4.65 10^6/uL (4.00-5.40); WHITE BLOOD COUNT 9.6 10^3/uL (4.0-10.0)
[2022-11-22] MEDS: INSULIN LISPRO (NovoLOG) PER UNIT SC SCH ×2 (12:00→16:39)
[2022-11-22] MEDS ORDERED: AZEL1SPR3 NARES (13:35)
[2022-11-22] MEDS ORDERED: XALA0.007 OD (13:35)
[2022-11-22] MEDS ORDERED: ATOR1TAB21 PO (13:35)
[2022-11-22] MEDS ORDERED: OYST500T11 PO (13:35)
[2022-11-22] MEDS ORDERED: MULT-90 PO (13:35)
[2022-11-22] MEDS ORDERED: TIMO0.5S39 OD (13:35)
[2022-11-22] MEDS ORDERED: HOME MED LIST COMPLETE! XX SCH (13:40)
[2022-11-22] MEDS ORDERED: AZELASTINE 137MCG NASAL SPY 30 ML (ASTELIN) PRN (13:50)
[2022-11-22 15:12] VITALS: BP 145/85
[2022-11-22] MEDS: FLUoxetine 10 MG CAP PO SCH (15:40)
[2022-11-22] MEDS: metroNIDAZOLE 500 MG in IV 1 EA IV SCH (15:41)
[2022-11-22] MEDS: CIPROFLOXACIN 400 MG in IV 1 EA IV SCH (17:08)
[2022-11-22] MEDS: TIMOLOL MALEATE 0.5% OPHTH SOLN 5 ML OD SCH (17:08)
[2022-11-22] MEDS ORDERED: INSULIN LISPRO (NovoLOG) PER UNIT SC SCH (21:00)
[2022-11-22] MEDS ORDERED: LATANOPROST 0.005% OPHTH SOLN 2.5 ML OD SCH (21:00)
[2022-11-22] MEDS ORDERED: ATORVASTATIN 20 MG TAB PO SCH (21:00)
[2022-11-22 21:11] VITALS: BP 122/62
[2022-11-23] MEDS: metroNIDAZOLE 500 MG in IV 1 EA IV SCH ×2 (00:11→09:27)
[2022-11-23 01:05] LABS: HEMATOCRIT 40.2 % (36.0-47.0); HEMOGLOBIN 13.2 g/dl (12.0-15.5)
[2022-11-23] MEDS: CIPROFLOXACIN 400 MG in IV 1 EA IV SCH (05:44)
[2022-11-23 05:52] VITALS: BP 125/64
[2022-11-23 05:55] LABS: HEMATOCRIT 41.7 % (36.0-47.0); HEMOGLOBIN 13.5 g/dl (12.0-15.5); MEAN CORPUSCULAR HEMOGLOBIN 28.5 pg (27.0-33.0); MEAN CORPUSCULAR HGB CONC 32.4 g/dl (32.0-36.5); PLATELET COUNT, AUTOMATED 265 10^3/uL (150-450); RED BLOOD COUNT 4.74 10^6/uL (4.00-5.40); WHITE BLOOD COUNT 7.2 10^3/uL (4.0-10.0)
[2022-11-23 06:29] LABS: ALBUMIN 2.7 G/DL (3.2-5.2); ALKALINE PHOSPHATASE 202 U/L (46-116); ALT/SGPT 19 U/L (7.0-40); AST/SGOT 20 U/L (<34); BILIRUBIN,TOTAL 0.7 MG/DL (0.3-1.2); BLOOD UREA NITROGEN 9 MG/DL (9-23); CALCIUM LEVEL 8.3 MG/DL (8.3-10.6); CARBON DIOXIDE LEVEL 30 MMOL/L (20-31); CHLORIDE LEVEL 104 MMOL/L (98-107); GLOMERULAR FILTRATION RATE > 60.0 (>45); GLUCOSE, FASTING 113 MG/DL (74-106); MAGNESIUM LEVEL 1.4 MG/DL (1.8-2.4); POTASSIUM SERUM 3.2 MMOL/L (3.5-5.1); SODIUM LEVEL 140 MMOL/L (136-145); TOTAL PROTEIN 5.4 G/DL (5.7-8.2)
[2022-11-23] MEDS: INSULIN LISPRO (NovoLOG) PER UNIT SC SCH ×2 (07:30→12:00)
[2022-11-23] MEDS: MIRALAX *UNIT DOSE* 17GM PACKET PO SCH (08:02)
[2022-11-23] MEDS: MAG SULF 1GM/100ML (MAG RUN) 1 GM in IV 1 EA IV SCH ×4 (08:02→13:10)
[2022-11-23] MEDS: FLUoxetine 10 MG CAP PO SCH (08:02)
[2022-11-23] MEDS: PANTOPRAZOLE 40MG VIAL IV SCH (08:03)
[2022-11-23 08:05] VITALS: BP 122/64
[2022-11-23] MEDS: TIMOLOL MALEATE 0.5% OPHTH SOLN 5 ML OD SCH (08:05)
[2022-11-23] MEDS ORDERED: ENTER DRUG NAME HERE (PATIENT'S OWN MED) PO SCH (09:00)
[2022-11-23] MEDS ORDERED: FLUBLOK(EGG FREE)(QUAD)INFLUENZA VACC 0.5ML SYRINGE 18YRS & OLDER IM.IMMUN ONE (09:00)
[2022-11-23] MEDS ORDERED: POTASSIUM CHLORIDE 10MEQ SR TABLET PO ONE (09:00)
[2022-11-23] MEDS ORDERED: PHEN26CR TOP (10:37)
[2022-11-23] MEDS ORDERED: LEVO1TAB40 PO (10:37)
[2022-11-23] MEDS ORDERED: METR-265 PO (10:37)
[2022-11-23] MEDS ORDERED: MIRA1POW3 PO (10:37)
[2022-11-23] MEDS ORDERED: MAGN400T2 PO (10:45)
[2022-11-23] MEDS ORDERED: POTA-150 PO (10:45)
[2022-11-23 12:12] LABS: HEMATOCRIT 41.1 % (36.0-47.0); HEMOGLOBIN 13.3 g/dl (12.0-15.5)
[2022-11-23 14:00] VITALS: BP 111/55
== END 2022-11-23 14:58 | disposition home health service (06) ==
LOC: EDBD 23:08 → M ED 23:08 → M ED INP 11-22 08:35 → ENRESERV 11-22 13:11 → M MSPAV 11-22 15:22
PROVIDERS: ADMIT Internal Medicine; ATTEND Internal Medicine
DX: K57.91 Diverticulosis of intestine, part unspecified, without perforation or abscess with bleeding (principal); K92.1 Melena; E88.9 Metabolic disorder, unspecified; E11.9 Type 2 diabetes mellitus without complications; I10 Essential (primary) hypertension; F70 Mild intellectual disabilities; K21.9 Gastro-esophageal reflux disease without esophagitis; F41.9 Anxiety disorder, unspecified; E03.9 Hypothyroidism, unspecified; Z79.84 Long term (current) use of oral hypoglycemic drugs; Z79.899 Other long term (current) drug therapy; E55.9 Vitamin D deficiency, unspecified; K75.81 Nonalcoholic steatohepatitis (NASH)
CPT/HCPCS: 36415; 74177; 76705; 80048; 80053; 80076; 81001; 82550; 82553; 83605; 83690; 83735; 84484; 85014; 85018; 85025; 85027; 85610; 86850; 86900; 86901; 87086; 87631; 90682; 93005; 93041; 96361; 96365; 96366; 96367; 96375; 96376; 99285; C9113; G0008; G0378; J0744; J3475